=== PATIENT | female | born 1940 | race African-American/Black ===

== ENCOUNTER 2019-07-12 23:50 | Emergency (ER) | payer OTHER ==
[~2019-07-12] VITALS: Ht 167.6 cm; Wt 68.0 kg
[2019-07-13 01:11] LABS: BASOPHILS % 1.2 % (0.0-2.0); HEMATOCRIT. 33.5 % (36.0-48.0); HEMOGLOBIN. 11.2 g/dL (12.0-16.0); LYMPHOCYTES % 43.8 % (20.0-50.0); MEAN CORPUSCULAR HEMOGLOBIN 29.9 pg (28.0-32.0); MEAN CORPUSCULAR VOLUME 88.9 fL (81.0-99.0); MEAN PLATELET VOLUME 8.1 fl (7.4-10.4); MONOCYTES % 8.9 % (2.0-8.0); NEUTROPHILS % 44.1 % (40.0-76.0); PLATELET 280 x1000/uL (130-400); RED BLOOD CELL COUNT 3.77 mill/uL (4.2-5.4); RED CELL DISTRIBUTION WIDTH 16.3 % (11.6-14.6)
[2019-07-13 01:18] LABS: CHLORIDE 111 mEq/L (98-107)
[2019-07-13 01:20] LABS: PARTIAL THROMBOPLASTIN TIME 32.6 sec (23.4-31.0); PROTHROMBIN TIME 10.5 sec (9.6-11.0)
[2019-07-13] MEDS ORDERED: CLOPIDOGREL 75MG TABLET PO ONE (02:00)
[2019-07-13 03:50] VITALS: BP 124/60
== END 2019-07-13 06:07 | disposition short-term general hospital (02) ==
LOC: ER 23:50
DX: R07.89 Other chest pain (principal); I10 Essential (primary) hypertension; E11.9 Type 2 diabetes mellitus without complications; Z79.899 Other long term (current) drug therapy
CPT/HCPCS: 36415; 71045; 82962; 83880; 84484; 93005; 99285